=== PATIENT | male | born 1940 | race Caucasian/White ===

== ENCOUNTER 2017-04-06 09:24 | Inpatient (IN) | payer OTHER ==
[2017-04-06] VITALS (19 sets, daily range): BP systolic 90–123; BP diastolic 38–67
[~2017-04-06] VITALS: Ht 177.8 cm; Wt 112.5 kg
--- NOTE | ~2017-04-06 | EKG ---
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
[~2017-04-06 09:24] MED LIST: ASPIR 8181 MG PO; ASPIRIN325 PO; AZITHROMYCIN 2250 MG PO; BENTYL 20 MG TA20 M1 PO; BUDESONIDE EC3 MG PO; CARDIZEM; CARVEDILOL12.5 MG PO; CARVEDILOL25 MG PO; CARVEDILOL3.125 MG PO; COREG; COREG6.25 MG PO; COUMADIN 2.5MG2.5 M1 PO; COUMADIN 5 MG TA5 M1 PO; COZAAR 25 MG TA25 M2 PO; COZAAR 50 MG TA50 M2 PO; COZAAR100 MG PO; DIABETA; DIABETA 2.5MG2.5 MG; DILTIAZEM 24HR240 MG; FLOMAX0.4 MG PO; FOLIC ACID 40400 MCG PO; FOLIC ACID1 MG PO; GLUCOPHAGE XR500 MG OR; GLUCOPHAGE XR750 MG; HYDRALAZINE 2525 M1 PO; HYDRALAZINE 2525 MG PO; IRON325 PO; LASIX 40 MG TAB40 M2 PO; LASIX 80 MG TAB80 MG PO; LISINOPRIL; LISINOPRIL40 MG PO; LORTAB 5 MG/5001 TA1 PO; METFORMIN; METFORMIN HCL500 MG PO; METOLAZONE 5 MG5 MG PO; NOVOLOG100 UNIT/1; POTASSIUM20 PO; PRAVACHOL40 MG; PREDNISONE 10 M10 MG PO; PRINZIDE 20-121 EACH PO; PROZAC20 MG PO; SAVAYSA60 MG PO; TESSALON PERLE100 MG PO; TORSEMIDE20 MG PO; TRAZODONE HCL50 MG PO; ZOCOR; ZOLOFT50 MG PO
[2017-04-06] MEDS ORDERED: CELEXA10 MG PO (09:35)
[2017-04-06 09:42] LABS: BE -5.1 mmol/L (-2 to +3); HCO3 18.6 mmol/L (22.0-26.0); PO2 98.6 mmHg (75.0-100.0); pH 7.441 (7.340-7.450)
[2017-04-06 10:04] LABS: ABSOLUTE BASOPHILS 0.1 thou/uL (0.0-0.2); ABSOLUTE EOSINOPHILS 0.2 thou/uL (0.0-0.7); ABSOLUTE LYMPHOCYTES 0.6 thou/uL (0.8-5.3); ABSOLUTE MONOCYTES 0.7 thou/uL (0.0-1.2); ABSOLUTE NEUTROPHILS 3.7 thou/uL (1.6-8.1); BASOPHILS 1.3 %; EOSINOPHILS 2.9 %; LYMPHOCYTES 11.9 %; MCH 32.5 pg (26.0-34.0); MCHC 32.2 g/dL (28.0-37.0); MCV 100.8 fL (80.0-100.0); MONOCYTES 13.5 %; MPV 9.3 fl. (7.2-11.1); NUCLEATED RBCS 0 /100WBC; PLATELET COUNT* 121 thou/uL (150-400); POLYS 70.4 %; RDW-CV 16.1 % (10.5-14.5); WBC 5.3 thou/uL (4.0-11.0)
[2017-04-06 10:08] LABS: ANION GAP 9 mmol/L (7-16); BUN 99 mg/dL (7-18); CALCIUM 7.9 mg/dL (8.5-10.1); CHLORIDE 103 mmol/L (98-107); CO2 25 mmol/L (21-32); CREATININE 2.3 mg/dL (0.6-1.3); GLUCOSE 163 mg/dL (70-99); POTASSIUM 5.6 mmol/L (3.5-5.1); SODIUM 137 mmol/L (136-145)
[2017-04-06 10:14] LABS: HEMATOCRIT 16.2 % (42.0-52.0); HEMOGLOBIN 5.2 gm/dL (14.0-18.0)
[2017-04-06 10:16] LABS: APTT 33.1 Seconds (25.0-31.3); INR 2.2; PROTIME 21.6 Seconds (9.20-11.50)
[2017-04-06 10:20] LABS: ALBUMIN 2.8 g/dL (3.4-5.0); ALKALINE PHOSPHATASE 87 U/L (46-116); NT-PRO BRAIN NAT PEPTIDE 1321 pg/mL (<300); SGOT 32 U/L (15-37); SGPT 23 U/L (30-65); TOTAL BILIRUBIN 0.7 mg/dL (<0.1-1.0); TROPONIN-I LEVEL <0.06 ng/mL (<0.06)
[2017-04-06 12:26] LABS: URINE BILIRUBIN NEGATIVE (Negative); URINE BLOOD NEGATIVE (Negative); URINE CLARITY CLEAR; URINE COLOR YELLOW; URINE GLUCOSE-RANDOM NEGATIVE (Negative); URINE KETONES NEGATIVE (Negative); URINE LEUKOCYTES-REFLEX NEGATIVE (Negative); URINE NITRITE-REFLEX NEGATIVE (Negative); URINE PROTEIN NEGATIVE (Negative); URINE UROBILINOGEN 0.2 E.U./dl (0.2-1.0)
[2017-04-06 12:40] LABS: INFLUENZA A ANTIGEN None Detected (None Detect); INFLUENZA B ANTIGEN None Detected (None Detect)
--- NOTE | 2017-04-06 17:20 | EKG ---
[place] [address] ELECTROCARDIOGRAM REPORT Name: KRISTI BEAR Room: [address] ADM IN M.R.#: [id number] Admission: 04/06/17 Attend Phys: Jonh Ugalde MD Discharge: Date of : 38 Report #: [id number] THIS REPORT FOR: //name// [facility] ED Test Date: 2017-04-06 Test Time: 09:22:34 Pat Name: BERRY CHEMA Department: Room: [facility] Gender: M Supervisor Post Wave: Deshawn DRIVER : 1940 Requested By: Antonette Lomeli Order Number: [id number] MD: Lacho Brannon Measurements Intervals [place] Rate: 62 P: [place]: QRS: 21 QRSD: 126 T: 183 QT: 465 QTc: 473 Interpretive Statements Atrial fibrillation Right bundle branch block Abnormal T, consider ischemia, lateral leads Compared to ECG 11/04/2015 10:47:54 Possible ischemia still present Electronically Signed On 04-06-2017 17:20:20 MEDICAL AFFAIRS LEADER by Lacho Brannon [email or web address] <ELECTRONICALLY SIGNED> By: Lacho Brannon MD, [facility] 04/06/17 1720 0922 Lacho Brannon MD, [facility] /EPI
--- NOTE | 2017-04-06 17:22 | EKG ---
[place] [address] ELECTROCARDIOGRAM REPORT Name: KRISTI BEAR Room: [address] ADM IN M.R.#: [id number] Admission: 04/06/17 Attend Phys: Jonh Ugalde MD Discharge: Date of : 39 Report #: [id number] THIS REPORT FOR: //name// [facility] ED Test Date: 2017-04-06 Test Time: 11:35:19 Pat Name: KRISTI BEAR Department: Room: [facility] Gender: M Bioinformatics Technician: Deshawn DRIVER : 1940 Requested By: Antonette Lomeli Order Number: [id number] MD: Lacho Brannon Measurements Intervals [place] Rate: 58 P: NE: QRS: 13 QRSD: 130 T: 208 QT: 475 QTc: 467 Interpretive Statements Atrial fibrillation Right bundle branch block Repol abnrm suggests ischemia, diffuse leads Electronically Signed On 04-06-2017 17:22:34 GOVERNMENT CONTRACTS MANAGER by Lacho Brannon [email or web address] <ELECTRONICALLY SIGNED> By: Lacho Brannon MD, [facility] 04/06/17 1722 D: 025 113 Lacho Brannon MD, FACC /EPI
[2017-04-06 19:14] LABS: HEMATOCRIT 19.9 % (42.0-52.0); HEMOGLOBIN 6.5 gm/dL (14.0-18.0)
[2017-04-06] MEDS ORDERED: FOLIC ACID1 MG PO (19:58)
[2017-04-07] VITALS (22 sets, daily range): BP systolic 89–128; BP diastolic 37–62
[2017-04-07 04:14] LABS: HEMATOCRIT 20.5 % (42.0-52.0); MCHC 33.4 g/dL (28.0-37.0); MPV 8.9 fl. (7.2-11.1); RBC 2.15 mil/uL (4.50-6.00); RDW-CV 16.9 % (10.5-14.5); WBC 9.1 thou/uL (4.0-11.0)
[2017-04-07 04:27] LABS: HEMOGLOBIN 6.9 gm/dL (14.0-18.0); MCV 95.6 fL (80.0-100.0)
[2017-04-07 04:30] LABS: ALBUMIN 2.8 g/dL (3.4-5.0); CALCIUM 7.6 mg/dL (8.5-10.1); CREATININE 1.7 mg/dL (0.6-1.3); MAGNESIUM 2.1 mg/dL (1.8-2.4); POTASSIUM 4.8 mmol/L (3.5-5.1); TOTAL BILIRUBIN 1.4 mg/dL (<0.1-1.0); TOTAL PROTEIN 5.9 g/dL (6.4-8.2)
[2017-04-07 04:36] LABS: INR 1.6; PROTIME 15.5 Seconds (9.20-11.50)
[2017-04-07 09:33] LABS: % SATURATION 46 % (20-39); IRON 185 ug/dL (50-175)
[2017-04-07 10:13] LABS: HEMOGLOBIN 6.2 gm/dL (14.0-18.0)
[2017-04-07 14:16] LABS: HEMOGLOBIN 6.9 gm/dL (14.0-18.0)
--- NOTE | 2017-04-07 17:36 | CON ---
[address] [address] CONSULTATION Name: BEARKRISTI AGNIESZKA Room: [address] ADM IN M.R.#: [id number] Admission: 04/06/17 Attend Phys: Jonh Ugalde MD Discharge: Date of : 39 Report #: [id number] THIS REPORT FOR: //name// CC: Jonh Clay DATE OF SERVICE: 04/06/2017 HISTORY OF PRESENT ILLNESS: The patient is a 76-year-old white male who I was asked to see in the hospital today after he apparently had a syncopal spell. The history is obtained from the old records as well as the patient's who is present. The patient has been drowsy. The patient has been followed by my partner, Dr. Seth River. He was actually admitted with congestive heart failure back in [address] River. He underwent a paracentesis. Echocardiogram showed normal left ventricular function. He had a dilated right heart. There was moderate pulmonary hypertension. He had a history of permanent atrial fibrillation. He has been chronically anticoagulated. He was last admitted here to [place] in 2015 with falls. He was felt to be deconditioned. He last saw Dr. River in [facility] in October. At that time, he had no significant complaints. According to the , the patient drinks up to 2 quarts of whiskey a week. He is a nonsmoker. He is very sedentary, does use a walker. Recently, he has been fatigued and no energy. He has had some black stools. Today, the patient was so weak. The could not get him out of bed. An ambulance was called. Apparently, when the paramedics arrived, he was tachycardic. They apparently perform some brief CPR. When he arrived in the Emergency Room, he was noted to be in atrial fibrillation and was hypotensive. He was started on dopamine. I was asked to see him for further evaluation and treatment. The patient denies a history of myocardial infarction or chest pain. He has been short of breath, but no edema. He has had no fever or cough. He has had no appetite. He has had black tarry stools. Apparently, had no seizure activity today. PAST MEDICAL HISTORY: Otherwise, significant for no other major surgical procedures other than cataracts. He has a history of anemia, permanent atrial fibrillation, diabetes, hypertension. MEDICATIONS: Consisted of carvedilol, Celexa, , furosemide, losartan, metformin, Flomax. ALLERGIES: HE HAS AN ALLERGY TO PENICILLIN. FAMILY HISTORY: His mother had atrial fibrillation. SOCIAL HISTORY: He is . He and his live in [place]. Nonsmoker. He has a history of alcohol abuse. [place] [address] CONSULTATION Name: KRISTI BEAR Room: [address] IN [facility].#: [id number] Admission: 04/06/17 Attend Phys: Jonh Ugalde MD Discharge: Date of : 39 Report #: [id number] REVIEW OF SYSTEMS: He has had no history of stroke, asthma, peptic ulcer disease, liver disease, seizures. No history of GI bleeding, kidney disease or cancer. He is overweight, standing 5 feet 10 inches, weighing 225 pounds. No psychiatric illness. PHYSICAL EXAMINATION: GENERAL: Revealed an elderly male, lying in bed. He appeared in no acute distress. VITAL SIGNS: His blood pressure was 100/60, pulse is 110. He was afebrile. HEENT: He was anicteric. Conjunctivae pink. Mucous members are moist. NECK: Veins difficult to assess due to obesity. CHEST: Clear to auscultation. CARDIOVASCULAR: Irregular rhythm. ABDOMEN: Soft, nontender. EXTREMITIES: Had no edema. Dorsalis pedis pulse 1+ bilaterally. SKIN: Cool and dry. NEUROLOGIC: He is very slow moving. DIAGNOSTIC DATA: His ECG showed atrial fibrillation with slow ventricular response rate and a right bundle-branch block. His workup, he had an echocardiogram done in December that showed left ventricular hypertrophy, ejection fraction 55%, biatrial enlargement. The right ventricle is dilated. Mild aortic, moderate mitral, moderate tricuspid insufficiency with moderate pulmonary hypertension. His x-rays today: CT scan of the head performed without contrast showed volume loss, evidence of previous infarction. His chest x-ray showed cardiomegaly, atelectasis. His lab work revealed sodium 137, potassium 5.6, BUN 99, creatinine 2.3, glucose 163. Bilirubin 0.7, SGPT 23, albumin 2.8. Troponin 0.06. BNP 1321. INR is 2.2. White blood cell count 5.3, hemoglobin 15.2, hematocrit 16, MCV 100, platelet count 121,000. IMPRESSION AND RECOMMENDATIONS: 1. Permanent atrial fibrillation. Rate controlled with a beta sridhar. Because of gastrointestinal bleed, I would hold anticoagulation at this time. 2. Gastrointestinal bleeding. The patient will need endoscopy. I would recommend transfusion. 3. Acute kidney injury. 4. Alcohol abuse. 5. Obesity. 6. History of hypertension. I would hold medications at this time because of low blood pressure. [address] [place] [address] CONSULTATION Name: KRISTI BEAR Room: [address] IN M.R.#: [id number] Admission: 04/06/17 Attend Phys: Jonh Ugalde MD Discharge: Date of : 39 Report #: [id number] 7. Diabetes. 8. Evidence of cor pulmonale with pulmonary hypertension. <ELECTRONICALLY SIGNED> By: Agnieszka Brannon MD, FACC 04/07/17 1736 1526 [id number] Brannon MD, FACC /nt
[2017-04-08] VITALS (7 sets, daily range): BP systolic 93–128; BP diastolic 45–57
[2017-04-08 05:13] LABS: WBC ND thou/uL (4.0-11.0)
[2017-04-08 05:14] LABS: HEMATOCRIT ND % (42.0-52.0); RBC ND mil/uL (4.50-6.00)
[2017-04-08 05:15] LABS: MCH ND pg (26.0-34.0); MCV ND fL (80.0-100.0)
[2017-04-08 05:16] LABS: MCHC ND g/dL (28.0-37.0)
[2017-04-08 05:17] LABS: RDW-CV ND % (10.5-14.5)
[2017-04-08 05:18] LABS: MPV ND fl. (7.2-11.1); PLATELET COUNT* ND thou/uL (150-400)
[2017-04-08 06:15] LABS: MCH 31.5 pg (26.0-34.0); MCHC 32.6 g/dL (28.0-37.0); MCV 96.5 fL (80.0-100.0); MPV 8.6 fl. (7.2-11.1); RBC 2.28 mil/uL (4.50-6.00); RDW-CV 17.2 % (10.5-14.5); WBC 8.3 thou/uL (4.0-11.0)
[2017-04-08 06:18] LABS: HEMOGLOBIN 7.2 gm/dL (14.0-18.0)
[2017-04-08 06:32] LABS: HEMOGLOBIN ND gm/dL (14.0-18.0)
[2017-04-08 06:41] LABS: ALBUMIN 2.8 g/dL (3.4-5.0); CALCIUM 7.6 mg/dL (8.5-10.1); CREATININE 1.5 mg/dL (0.6-1.3); MAGNESIUM 2.1 mg/dL (1.8-2.4); POTASSIUM 4.2 mmol/L (3.5-5.1); TOTAL PROTEIN 5.9 g/dL (6.4-8.2)
[2017-04-08 12:06] LABS: IgA 262 mg/dL (61-437); IgG 783 mg/dL (700-1600); IgM 57 mg/dL (15-143)
[2017-04-08 14:32] LABS: HEMATOCRIT 22.3 % (42.0-52.0); HEMOGLOBIN 7.3 gm/dL (14.0-18.0)
--- NOTE | 2017-04-08 15:08 | CON ---
[address] [address] CONSULTATION Name: KRISTI BEAR Room: [address] IN M.R.#: [id number] Admission: 04/06/17 Attend Phys: Jonh Ugalde MD Discharge: Date of : 39 Report #: [id number] THIS REPORT FOR: //name// CC: Jonh Clay DATE OF SERVICE: 04/07/2017 CONSULTING PHYSICIAN: Jonh Ugalde MD REASON FOR CONSULTATION: Acute renal failure and hyperkalemia. CHIEF COMPLAINT: Syncope. HISTORY OF PRESENT ILLNESS: This is a 76-year-old male who has a history of alcohol use, who was brought in by family because he had a nonresponsive episode at home. When EMS was bringing him to the hospital, he had a VFib arrest and for about 20 seconds was resuscitated before he regained consciousness. He also reported black tarry stools. His hemoglobin is extremely low at 6.2 and he has received about 4 units of blood transfusion since yesterday. GI is involved in his case. He has not had any active bleeding while he has been in the hospital. His baseline creatinine seems to be between 1.3-1.4, but it was found to be 2.3 yesterday on arrival and hence nephrology was consulted. He has had difficult Logan insertion in the past, the Logan was inserted by urology and his urine output has been excellent. He was started on IV fluids as of yesterday. Urine dipstick shows no protein or blood. Currently, he is awake, alert, oriented x3, not in any acute distress. At home in addition to other medications, he also takes Lasix and losartan. Denies any use of NSAIDs, and denies having any kidney problems and having any kidney stones. He is on a low dose dopamine to keep his blood pressure up and his mean arterial pressure has been good. REVIEW OF SYSTEMS: Black tarry stools, syncopal episode at home, and weakness. Otherwise, 10-point review of systems done and negative. PAST MEDICAL HISTORY: Includes: 1. History of alcohol use, probably CKD stage 3 with baseline creatinine of 1.3 to 1.4. 2. BPH. 3. Hypertension. 4. Chronic diastolic congestive heart failure. 5. COPD. 6. Diabetes type 2. FAMILY HISTORY: [place] [address] CONSULTATION Name: KRISTI BEAR Room: [address]#: [id number] Admission: 04/06/17 Attend Phys: Jonh Ugalde MD Discharge: Date of : 39 Report #: [id number] PAST SURGICAL HISTORY: Includes cataract surgeries. SOCIAL HISTORY: He uses alcohol every day about 4 ounces of bourbon, not a smoker, does not use any recreational drugs. ALLERGIES: Reviewed. HOME MEDICATIONS: Reviewed. CURRENT INPATIENT MEDICATIONS: Reviewed. PHYSICAL EXAMINATION: VITAL SIGNS: Blood pressure is 99/44, pulse ox is 96% on 2 liters nasal cannula, respiratory rate is 17, pulse rate is 63, and temperature is 36.4. GENERAL: He is awake, alert, oriented x3, not in any acute distress. HEAD, EYES, EARS, NOSE, AND THROAT: Mucous membranes are mildly dry. NECK: No JVD noted. CHEST: Bilateral diminished breath sounds and basilar crackles heard. CARDIOVASCULAR: S1, S2 normal. No murmurs. ABDOMEN: Soft, nondistended, nontender, obese. Bowel sounds are present. EXTREMITIES: Symmetrical extremities. No edema. SKIN: Dry and intact. NEUROLOGICAL FUNCTION: Gross neurologic function seems to be intact. PSYCHIATRIC: Mood and affect seem to be normal. LABS: Hemoglobin 6.2 today. Sodium 141, potassium 4.8, creatinine of 1.7 and other labs were reviewed. IMAGING: Renal ultrasound, head CT, and chest x-ray were reviewed. IMPRESSION: 1. Acute renal failure on chronic kidney disease stage 3 because of dehydration. 2. Hyperkalemia. 3. Anemia, likely due to upper gastrointestinal bleed. 4. Hypotension. PLAN: With IV fluids, the patient's creatinine is getting better. Acute renal failure was most likely because of dehydration, gastrointestinal bleed and use of Lasix and losartan at home. Baseline creatinine is around 1.3 to 1.4. Creatinine has improved. We will decrease IV fluids to normal saline at 75 mL an hour. Potassium has normalized now. Anemia is most likely because of upper GI bleed and the patient is supposed to get a scope soon. Try to keep mean arterial pressure more than 65, which it is right now. Strict I's and O's. We will also check a serum immunofixation, serum kappa to lambda light chain ratio with tomorrow morning's labs. [address] [address] CONSULTATION Name: KRISTI BEAR Room: M.205-P ADM IN M.R.#: [id number] Admission: 04/06/17 Attend Phys: Jonh Ugalde MD Discharge: Date of : 39 Report #: [id number] Thank you for this consultation and we will continue to follow along with you. <ELECTRONICALLY SIGNED> By: Abigail Chase MD 04/08/17 1508 1140 [id number] Chase MD /nt
[2017-04-09] VITALS: BP 108/45
[2017-04-09 04:00] VITALS: BP 119/44
[2017-04-09 05:52] LABS: HEMATOCRIT 22.4 % (42.0-52.0); HEMOGLOBIN 7.2 gm/dL (14.0-18.0); MCH 31.3 pg (26.0-34.0); MCHC 32.1 g/dL (28.0-37.0); MCV 97.7 fL (80.0-100.0); MPV 8.8 fl. (7.2-11.1); RBC 2.29 mil/uL (4.50-6.00); RDW-CV 17.4 % (10.5-14.5); WBC 6.8 thou/uL (4.0-11.0)
[2017-04-09 06:06] LABS: CALCIUM 7.9 mg/dL (8.5-10.1); CREATININE 1.3 mg/dL (0.6-1.3); MAGNESIUM 2.1 mg/dL (1.8-2.4); POTASSIUM 4.1 mmol/L (3.5-5.1)
[2017-04-09 08:00] VITALS: BP 118/56
[2017-04-09 12:00] VITALS: BP 109/48
[2017-04-09 16:00] VITALS: BP 97/61
[2017-04-09 17:08] LABS: KAPPA FREE LIGHT CHAINS 47.1 mg/L (3.3-19.4); LAMBDA FREE LIGHT CHAINS 45.7 mg/L (5.7-26.3)
[2017-04-10] VITALS (8 sets, daily range): BP systolic 108–141; BP diastolic 43–71
[2017-04-10 05:41] LABS: HEMATOCRIT 22.6 % (42.0-52.0); HEMOGLOBIN 7.2 gm/dL (14.0-18.0); MCH 31.3 pg (26.0-34.0); MCHC 31.8 g/dL (28.0-37.0); MCV 98.2 fL (80.0-100.0); RBC 2.31 mil/uL (4.50-6.00); RDW-CV 17.4 % (10.5-14.5); WBC 6.8 thou/uL (4.0-11.0)
[2017-04-10 06:39] LABS: CALCIUM 8.1 mg/dL (8.5-10.1); CREATININE 1.2 mg/dL (0.6-1.3); MAGNESIUM 2.1 mg/dL (1.8-2.4); POTASSIUM 3.5 mmol/L (3.5-5.1)
[2017-04-10 10:17] LABS: CHOLESTEROL 93 mg/dL (<200); HDL CHOLESTEROL 23 mg/dL (>40); LDL CHOLESTEROL 59 mg/dL (<100); SERUM ASSESSMENT Clear; TRIGLYCERIDE 58 mg/dL (<150); VLDL 12 mg/dL (<40)
[2017-04-11 03:30] VITALS: BP 117/48
[2017-04-11 05:25] LABS: HEMATOCRIT 22.4 % (42.0-52.0); HEMOGLOBIN 7.3 gm/dL (14.0-18.0)
[2017-04-11 08:04] VITALS: BP 125/61
[2017-04-11] MEDS ORDERED: CARAFATE 1 GM TA1 G1 PO (08:12)
[2017-04-11] MEDS ORDERED: NEXIUM40 MG PO (08:12)
[2017-04-11 11:01] VITALS: BP 110/43
[2017-04-11 13:33] VITALS: BP 110/43
--- NOTE | 2017-04-23 14:50 | CON ---
[address] [address] CONSULTATION Name: KRISTI BEAR Room: [address] IN M.R.#: [id number] Admission: 04/06/17 Attend Phys: Jonh Ugalde MD Discharge: 04/11/17 Date of : 39 Report #: [id number] THIS REPORT FOR: //name// CC: Jonh Clay DATE OF SERVICE: 04/07/2017 REASON FOR CONSULT: Anemia. The patient also reports 1 month history of melanotic stool. HISTORY OF PRESENT ILLNESS: This is a 76-year-old male with history of colonoscopy in the past who reports that he came to the hospital by ambulance after he had a syncopal episode at home. He has been feeling weak for the past several days. During his hospital route, the patient had VFib and cardiac arrest. He was resuscitated. Since hospitalization, he had a central line in place, which was oozing some blood. He also has had only one bowel movement, which melanotic. His hemoglobin initially was 8.0 and dropped to 5.7, he was transfused and his hemoglobin currently is 6.9. He denies any abdominal pain, nausea, vomiting, or dyspepsia. PAST MEDICAL HISTORY: Significant for history of chronic anticoagulation due to AFib, diabetes mellitus, hypertension, chronic lung disease, and CHF. ALLERGIES: Significant to PENICILLIN. MEDICATIONS: Please refer to hospital [facility]. SOCIAL HISTORY: The patient may drink 4-6 ounces of whiskey every night. Denies tobaccoism. FAMILY HISTORY: He does not have any family history of GI malignancy. PHYSICAL EXAMINATION: VITAL SIGNS: Reveals blood pressure of 116/56, respirations 19, pulse 63, and temperature 36.4. LUNGS: Clear to auscultation bilaterally. CARDIOVASCULAR: Regular rate. ABDOMEN: Large, soft, nontender, nondistended. Bowel sounds are positive. NEUROLOGIC: The patient is alert and oriented x3. There are no focal neurologic deficits. LABS: Reveal hemoglobin of 6.9, hematocrit , platelet is 117. RDW 16.9 with MCV of 95. INR is 1.6. Sodium is 141, potassium is 4.8, down from 5.6; BUN is 85, creatinine 1.7, iron saturation is 46. Liver enzymes are [place] [address] CONSULTATION Name: BEARKRISTI AGNIESZKA Room: [address]#: [id number] Admission: 04/06/17 Attend Phys: Jonh Ugalde MD Discharge: 04/11/17 Date of : 39 Report #: [id number] IMAGING: Chest x-ray on admission revealed evidence of pulmonary venous congestion and diffuse interstitial prominence without any changes. He also has cardiomegaly. ASSESSMENT AND PLAN: The patient with history of colonoscopy 4-5 years ago who presents with anemia and melanotic stool for the past months. He also is on chronic anticoagulation therapy for history of atrial fibrillation. He is currently hemodynamically stable. We will go ahead and consider performing upper endoscopy. Meanwhile, we will continue his Protonix drip. <ELECTRONICALLY SIGNED> By: Radha Solis MD 04/23/17 1450 1425 [id number] Solis MD /nt
== END 2017-04-11 13:30 | disposition home health service (06) | DRG 377 ==
LOC: M.ERS 09:24 → M.ICU 11:46 → M.TBA-ER 11:46 → M.ICU 14:45 → M.2W 04-08 13:45
PROVIDERS: Internal Medicine; Internal Medicine Cardiovascular Disease; Internal Medicine Gastroenterology; Personal Emergency Response Attendant; ADMIT Internal Medicine
PROC: 30233N1 Transfusion of Nonautologous Red Blood Cells into Peripheral Vein, Percutaneous Approach (ICD-10-PCS; principal; 2017-04-06)
PROC: 02HV33Z Insertion of Infusion Device into Superior Vena Cava, Percutaneous Approach (ICD-10-PCS; principal; 2017-04-06)
PROC: 0DJD8ZZ Inspection of Lower Intestinal Tract, Via Natural or Artificial Opening Endoscopic (ICD-10-PCS; 2017-04-10)
PROC: 0DJ08ZZ Inspection of Upper Intestinal Tract, Via Natural or Artificial Opening Endoscopic (ICD-10-PCS; 2017-04-10)
DX: K29.71 Gastritis, unspecified, with bleeding (principal); R57.0 Cardiogenic shock; N17.0 Acute kidney failure with tubular necrosis; I49.01 Ventricular fibrillation; I21.4 Non-ST elevation (NSTEMI) myocardial infarction; I50.32 Chronic diastolic (congestive) heart failure; I13.0 Hypertensive heart and chronic kidney disease with heart failure and stage 1 through stage 4 chronic kidney disease, or unspecified chronic kidney disease; E87.2 Acidosis; F10.239 Alcohol dependence with withdrawal, unspecified; D62 Acute posthemorrhagic anemia; K21.0 Gastro-esophageal reflux disease with esophagitis; K44.9 Diaphragmatic hernia without obstruction or gangrene; K57.31 Diverticulosis of large intestine without perforation or abscess with bleeding; N40.0 Benign prostatic hyperplasia without lower urinary tract symptoms; N18.3 Chronic kidney disease, stage 3 (moderate); D12.2 Benign neoplasm of ascending colon; K64.4 Residual hemorrhoidal skin tags; Z66 Do not resuscitate; E86.0 Dehydration; K59.00 Constipation, unspecified; K64.8 Other hemorrhoids; E11.22 Type 2 diabetes mellitus with diabetic chronic kidney disease; I95.9 Hypotension, unspecified; E87.5 Hyperkalemia; I34.0 Nonrheumatic mitral (valve) insufficiency; J44.9 Chronic obstructive pulmonary disease, unspecified; E11.9 Type 2 diabetes mellitus without complications; D64.9 Anemia, unspecified; I48.2 Chronic atrial fibrillation; I27.29 Other secondary pulmonary hypertension; Z68.35 Body mass index [BMI] 35.0-35.9, adult; E66.9 Obesity, unspecified; Z79.82 Long term (current) use of aspirin; Z79.84 Long term (current) use of oral hypoglycemic drugs; Z79.899 Other long term (current) drug therapy; Z88.0 Allergy status to penicillin; Z82.49 Family history of ischemic heart disease and other diseases of the circulatory system

== ENCOUNTER → 2018-01-29 | Outpatient (CLI) | payer OTHER ==
[~2018-01-29] MED LIST changes: +CARAFATE 1 GM TA1 G1 PO; +CELEXA10 MG PO; +NEXIUM40 MG PO
== END ==
LOC: M.CT 11:46
DX: I51.7 Cardiomegaly (principal); R59.0 Localized enlarged lymph nodes

== ENCOUNTER → 2018-05-13 | Outpatient (CLI) | payer OTHER | LOC: M.CT 10:53 | DX: K80.20 Calculus of gallbladder without cholecystitis without obstruction (principal); I25.10 Atherosclerotic heart disease of native coronary artery without angina pectoris; J84.10 Pulmonary fibrosis, unspecified; I11.0 Hypertensive heart disease with heart failure; I50.9 Heart failure, unspecified; R16.0 Hepatomegaly, not elsewhere classified; R18.8 Other ascites; R91.1 Solitary pulmonary nodule; N62 Hypertrophy of breast; E11.9 Type 2 diabetes mellitus without complications; J44.9 Chronic obstructive pulmonary disease, unspecified; I48.2 Chronic atrial fibrillation ==

== ENCOUNTER 2018-07-22 12:41 | Emergency (ER) | payer OTHER ==
[~2018-07-22] VITALS: Ht 180.3 cm; Wt 90.2 kg
[2018-07-22 13:13] LABS: ABSOLUTE BASOPHILS 0.1 thou/uL (0.0-0.2); ABSOLUTE EOSINOPHILS 0.1 thou/uL (0.0-0.7); ABSOLUTE LYMPHOCYTES 0.4 thou/uL (0.8-5.3); ABSOLUTE MONOCYTES 0.7 thou/uL (0.0-1.2); ABSOLUTE NEUTROPHILS 5.7 thou/uL (1.6-8.1); BASOPHILS 0.8 %; EOSINOPHILS 0.9 %; HEMATOCRIT 33.3 % (42.0-52.0); HEMOGLOBIN 11.1 gm/dL (14.0-18.0); LYMPHOCYTES 5.9 %; MCH 32.2 pg (26.0-34.0); MCHC 33.2 g/dL (28.0-37.0); MCV 96.9 fL (80.0-100.0); MONOCYTES 10.2 %; MPV 8.7 fl. (7.2-11.1); NUCLEATED RBCS 0 /100WBC; PLATELET COUNT* 113 thou/uL (150-400); POLYS 82.2 %; RBC 3.44 mil/uL (4.50-6.00); RDW-CV 15.5 % (10.5-14.5); WBC 6.9 thou/uL (4.0-11.0)
[2018-07-22 13:25] LABS: APTT 33.4 Seconds (25.0-31.3); INR 1.5
[2018-07-22 13:58] LABS: CALCIUM 8.5 mg/dL (8.5-10.1); CREATININE 1.3 mg/dL (0.6-1.3); POTASSIUM 5.1 mmol/L (3.5-5.1)
[2018-07-22 14:02] LABS: ALBUMIN 3.8 g/dL (3.4-5.0); TOTAL BILIRUBIN 1.9 mg/dL (<0.1-1.0); TOTAL PROTEIN 7.6 g/dL (6.4-8.2)
[2018-07-22 14:34] LABS: URINE BILIRUBIN NEGATIVE (Negative); URINE BLOOD TRACE (Negative); URINE CLARITY CLEAR; URINE COLOR DARK YELLOW; URINE GLUCOSE-RANDOM NEGATIVE (Negative); URINE KETONES NEGATIVE (Negative); URINE LEUKOCYTES-REFLEX NEGATIVE (Negative); URINE NITRITE-REFLEX NEGATIVE (Negative); URINE PROTEIN NEGATIVE (Negative); URINE SPECIFIC GRAVITY 1.015 (1.005-1.030)
[2018-07-22 14:52] VITALS: BP 123/77
== END 2018-07-22 14:54 | disposition home or self-care (01) ==
LOC: M.ERS 12:41
PROVIDERS: Emergency Medicine Emergency Medical Services
DX: S51.811A Laceration without foreign body of right forearm, initial encounter (principal); R04.0 Epistaxis; M25.572 Pain in left ankle and joints of left foot; I48.2 Chronic atrial fibrillation; I11.0 Hypertensive heart disease with heart failure; I50.32 Chronic diastolic (congestive) heart failure; E11.9 Type 2 diabetes mellitus without complications; J44.9 Chronic obstructive pulmonary disease, unspecified; Z88.0 Allergy status to penicillin; X58.XXXA Exposure to other specified factors, initial encounter; Y93.89 Activity, other specified; Y92.89 Other specified places as the place of occurrence of the external cause; Y99.8 Other external cause status

== ENCOUNTER 2018-11-10 14:50 | Emergency (ER) | payer OTHER ==
[~2018-11-10] VITALS: Ht 180.3 cm; Wt 92.5 kg
[2018-11-10] MEDS ORDERED: ALLOPURINOL 10100 M1 PO (15:03)
[2018-11-10 15:25] LABS: ABSOLUTE EOSINOPHILS 0.5 thou/uL (0.0-0.7); ABSOLUTE LYMPHOCYTES 0.6 thou/uL (0.8-5.3); ABSOLUTE MONOCYTES 0.8 thou/uL (0.0-1.2); ABSOLUTE NEUTROPHILS 3.3 thou/uL (1.6-8.1); BASOPHILS 0.6 %; EOSINOPHILS 9.8 %; HEMOGLOBIN 11.5 gm/dL (14.0-18.0); LYMPHOCYTES 11.4 %; MCH 33.6 pg (26.0-34.0); MCHC 33.8 g/dL (28.0-37.0); MCV 99.2 fL (80.0-100.0); NUCLEATED RBCS 0 /100WBC; PLATELET COUNT* 139 thou/uL (150-400); POLYS 63.2 %; RBC 3.42 mil/uL (4.50-6.00); RDW-CV 15.7 % (10.5-14.5); WBC 5.2 thou/uL (4.0-11.0)
[2018-11-10 15:43] LABS: ANION GAP 10 mmol/L (7-16); BUN 23 mg/dL (7-18); CALCIUM 8.1 mg/dL (8.5-10.1); CHLORIDE 105 mmol/L (98-107); CO2 23 mmol/L (21-32); CREATININE 1.3 mg/dL (0.6-1.3); GLUCOSE 97 mg/dL (70-99); INR 1.5; POTASSIUM 4.8 mmol/L (3.5-5.1); PROTIME 14.7 Seconds (9.20-11.50); SODIUM 138 mmol/L (136-145)
[2018-11-10 15:53] LABS: ALBUMIN 3.5 g/dL (3.4-5.0); ALKALINE PHOSPHATASE 201 U/L (46-116); LIPASE 118 U/L (73-393); NT-PRO BRAIN NAT PEPTIDE 1164 pg/mL (<300); SGOT 84 U/L (15-37); SGPT 38 U/L (30-65); TROPONIN-I LEVEL <0.06 ng/mL (<0.06)
[2018-11-10 17:40] LABS: MAGNESIUM 2.3 mg/dL (1.8-2.4); PHOSPHORUS* 3.3 mg/dL (2.5-4.9)
[2018-11-10 17:41] LABS: URINE BILIRUBIN NEGATIVE (Negative); URINE BLOOD NEGATIVE (Negative); URINE CLARITY CLEAR; URINE COLOR YELLOW; URINE GLUCOSE-RANDOM NEGATIVE (Negative); URINE KETONES NEGATIVE (Negative); URINE LEUKOCYTES-REFLEX NEGATIVE (Negative); URINE NITRITE-REFLEX NEGATIVE (Negative); URINE PROTEIN NEGATIVE (Negative); URINE UROBILINOGEN 0.2 E.U./dl (0.2-1.0)
[2018-11-10 17:49] VITALS: BP 121/62
--- NOTE | 2018-11-11 15:51 | EKG ---
[place] [address] ELECTROCARDIOGRAM REPORT Name: KRISTI BEAR [facility] [id number] Admission: 11/10/18 Attend Phys: Discharge: 11/10/18 Date of : 39 Report #: [id number] THIS REPORT FOR: //name// [facility] ED Test Date: 2018-11-10 Test Time: 14:53:35 Pat Name: KRISTI BEAR Department: Room: Gender: M Campus Security Officer: GLADYS : 1940 Requested By: Antonette Lomeli Order Number: [id number] MD: Seth River Measurements Intervals [place] Rate: 58 P: [place]: QRS: 0 QRSD: 149 T: 133 QT: 489 QTc: 481 Interpretive Statements Atrial fibrillation Right bundle branch block Repol abnrm suggests ischemia, lateral leads Compared to ECG 04/06/2017 11:35:19 No significant changes Electronically Signed On 11-11-2018 15:51:10 CDT by Seth River [email or web address] <ELECTRONICALLY SIGNED> By: Seth River MD, [facility] 11/11/18 1551 1453 1453 Seth River MD, FAC /EPI
== END 2018-11-10 17:49 | disposition left against medical advice (07) ==
LOC: M.ERS 14:50
PROVIDERS: Personal Emergency Response Attendant
DX: E87.70 Fluid overload, unspecified (principal); F10.129 Alcohol abuse with intoxication, unspecified; K72.90 Hepatic failure, unspecified without coma; I11.0 Hypertensive heart disease with heart failure; I50.31 Acute diastolic (congestive) heart failure; E11.9 Type 2 diabetes mellitus without complications; J44.9 Chronic obstructive pulmonary disease, unspecified; I48.2 Chronic atrial fibrillation; E66.9 Obesity, unspecified; Z95.2 Presence of prosthetic heart valve; Z68.28 Body mass index [BMI] 28.0-28.9, adult; Z88.0 Allergy status to penicillin